=== PATIENT | male | born 1980 | race Caucasian/White ===

== ENCOUNTER 2019-03-31 08:31 | Outpatient (CLI) | payer BC ==
[~2019-03-31] VITALS: Ht 188 cm; Wt 90.7 kg
[2019-03-31 09:11] LABS: TOTAL HEMOGLOBIN 13.3 G/dl (14.0-17.9)
[2019-03-31] MEDS ORDERED: albuterol 2.5 MG/3 ML nebule NEB ONE (09:30)
== END 2019-03-31 23:59 | disposition home or self-care (01) ==
LOC: RT 08:31
PROVIDERS: ATTEND Internal Medicine Pulmonary Disease
DX: J45.991 Cough variant asthma (principal)
CPT/HCPCS: 85018; 94060; 94727; 94729; 94760